=== PATIENT | male | born 1990 | race Caucasian/White ===

== ENCOUNTER 2022-06-09 16:14 | Outpatient (REF) | payer OTHER, SELFPAY ==
--- NOTE | ~2022-06-09 | CT_ITS ---
EXAMINATION: CT SINUS WITHOUT CONTRAST CLINICAL INFORMATION: Sinus nasal polyp and deviation. COMPARISON: There are no prior studies available for comparison. TECHNIQUE: Multidetector helical imaging was performed in the axial plane with generation of coronal and sagittal reformatted images. This CT examination was performed using dose optimization techniques as appropriate, variously including the following: *Automated exposure control *Adjustment of mA and/or kV according to patient size (this includes techniques or standardized protocols for targeted exams where dose is matched to indication/reason for exam; i.e. extremities or head) *Use of iterative reconstruction technique DLP: 116 mGy-cm. FINDINGS: FRONTAL SINUSES AND DRAINAGE PATHWAYS: The frontal sinuses are well-developed bilaterally. There is mild mucoperiosteal thickening in the bilateral frontoethmoidal recesses. MAXILLARY SINUSES AND DRAINAGE PATHWAYS: The maxillary sinuses are well-developed bilaterally. There is a large retention cyst in the inferior left maxillary sinus. There is minimal mucoperiosteal thickening in the superomedial right maxillary sinus. There are small Fran cells bilaterally. The ostiomeatal complexes are patent bilaterally. ETHMOID SINUSES: The ethmoid sinuses are well-developed bilaterally. There is mild mucoperiosteal thickening in the mid and anterior right ethmoid air cells. SPHENOID SINUSES AND DRAINAGE PATHWAYS: The sphenoid sinuses are well-developed bilaterally. There is a minimal amount of mucoperiosteal thickening in the posteromedial right sphenoid sinus. The sphenoethmoidal recesses are patent bilaterally. NASAL CAVITY AND NASAL SEPTUM: The nasal septum is deviated to the left and is a prominent left-sided bony nasal septal spur extending between the left middle and inferior turbinate bones. There is a right middle turbinate siddharth bullosa. ADDITIONAL RELEVANT FINDINGS: The lamina papyracea are intact. The carotid canals are normally covered by bone. The ethmoid roofs are is slightly higher compared to the left No periapical disease is seen. The TMJs and orbits are normal. The mastoid air cells are clear. There are no acute intracranial findings. CT/CT sinus wo IV con IMPRESSION: 1. There is a prominent retention cyst in the left maxillary sinus. There is mild mucoperiosteal thickening in the frontoethmoidal recesses. 2. The ostiomeatal complexes are patent bilaterally. 3. The nasal septum is deviated to the left and there is a prominent left-sided bony nasal septal spur.
== END 2022-06-09 16:15 | disposition home or self-care (01) ==
LOC: HO.CT 16:14
PROVIDERS: PCP Family Medicine; Visit Provider Otolaryngology
DX: J33.0 Polyp of nasal cavity (principal)
CPT/HCPCS: 70486